=== PATIENT | male | born 1965 | race Caucasian/White ===

== ENCOUNTER 2016-11-29 20:50 | Emergency (ER) ==
[2016-11-29 21:09] LABS: MANUAL DIFF NEEDED? NO
[2016-11-29 21:17] LABS: BASO% 0.4 % (0.0-0.8); EOS# 0.11 X1000 (0.0-0.7); HEMATOCRIT 47.8 % (42.0-52.0); HEMOGLOBIN 17.3 g/dL (14.0-18.0); IMM GRAN# 0.04 X1000 (0.0-0.04); IMM GRAN% 0.4 % (0.0-0.5); LYMPH# 2.64 X1000 (1.2-3.4); LYMPH% 24.1 % (20.5-51.1); MCH 29.9 PG (27-31); MCHC 36.2 g/dL (33-37); MCV 82.6 FL (81-99); MONO# 0.64 X1000 (0.11-0.59); MONO% 5.8 % (1.7-9.3); MPV 9.8 FL (7.4-10.4); NEUT% 68.3 % (42.2-75.2); PLT 212 X1000 (130-400); RBC 5.79 XMIL (4.7-6.1)
[2016-11-29] MEDS ORDERED: ASPIRIN PO ONE (21:22)
[2016-11-29] MEDS ORDERED: ZOFRAN IV ONE (21:22)
[2016-11-29] MEDS ORDERED: LABETALOL IV ONE (21:22)
[2016-11-29] MEDS ORDERED: DILAUDID IV ONE (21:22)
--- NOTE | 2016-11-29 21:38 | PROVIDER DOCUMENTATION ---
HPI-Chest Pain - General Source: patient, EMS - History of Present Illness-CP Location: denies: substernal (midsternal) Chest Pain Radiation: reports: back Quality of Pain: reports: pressure, sharp, stabbing, throbbing, other (shooting) Severity in ED: moderate Onset/Duration: this morning (0630) Timing: still present, improving Context/Activities at Onset: reports: light activity Associated Symptoms: reports: back pain. denies: abdominal pain, diaphoresis, dizziness, edema, fatigue, fever/chills, headache, heartburn, nausea, rash, shortness of breath, swelling/lump in chest, syncope, vomiting, weakness Nitro Today/Relief: 0.4 mg x 3, provided by EMS Prior Chest Pain/Cardiac Workup: reports: no prior chest pain, no prior cardiac workup <Jose Angel - Last Filed: 11/29/16 23:51> <Dank Ward - Last Filed: 11/30/16 00:46> - General Stated Complaint: cp Time Seen by Provider: 11/29/16 21:07 Allergies/Adverse Reactions: Patient Allergies Allergy/AdvReac Type Severity Reaction Status Date / Time No Known Allergies Allergy Verified 06/27/15 13:34 Home Medications: Home Medication List Medication Instructions Recorded Confirmed Last Taken Type Lisinopril/Hydrochlorothiazide 1 each PO DAILY #30 tablet 06/27/15 Unknown Rx [Lisinopril-Hctz 20-12.5 mg Tab] Methocarbamol [Robaxin-750] 750 mg PO TID #30 tablet 06/27/15 Unknown Rx Naproxen 375 mg PO BID #20 tablet 06/27/15 Unknown Rx Tramadol [Ultram] 50 mg PO Q8HR #8 tablet 06/27/15 Unknown Rx Amlodipine Besylate [Norvasc] 10 mg PO HS #30 tablet 11/30/16 Unknown Rx Lisinopril 20 mg PO DAILY #30 tablet 11/30/16 Unknown Rx Tramadol [Ultram] 50 mg PO TID #30 tablet 11/30/16 Unknown Rx - History of Present Illness-CP Nature of Presenting Problem: Pt is a 51 yom who presents to ER via EMS with CC of chest pain/soreness with onset of approximately 0630 this am. Pt reports that he had several coughing fits yesterday. Today, pt reports that he moved some furniture in his house and noticed that his chest pain got a little worse, but didn't think much of it. Pt went to buddhism, intending on taking tylenol before leaving but forgot. Pt's chest pain progressively got worse until 193 when it became 10/10. Pt was given nitrox3 by EMS with relief to 6/10, but soon returned to 10/10 C/P. Pt described midsternal chest pain as sharp/stabbing/throbbing/shooting that radiated throught to his back. On exam, pt has bilateral lower rib tenderness and bilateral painful inspiration. (Jose Angel) Review of Systems - Adult - REVIEW OF SYSTEMS - ADULT Constitutional: denies: chills, fever, fatique, night sweats, weight gain, weight loss Eyes: reports: no symptoms reported Ears, Nose, Mouth & Throat: reports: no symptoms reported Cardiovascular: reports: chest pain. denies: edema, heart murmur, irregular heart rate, orthopnea, palpitations, poor circulation, PND, syncope Respiratory: reports: cough, dyspnea on exertion. denies: chronic cough, excessive sputum production, hemoptysis, pleurisy, shortness of breath, wheezing Gastrointestinal: reports: no symptoms reported Genitourinary: reports: no symptoms reported Musculoskeletal: reports: back pain, muscle aches. denies: bone pain, frequent leg cramps, joint pain, joint swelling, muscle weakness, neck pain Integumentary: reports: no symptoms reported Neurological: reports: no symptoms reported Psychiatric: reports: no symptoms reported Endocrine: reports: no symptoms reported Hematologic/Lymphatic: reports: no symptoms reported Allergic/Immunologic: reports: no symptoms reported All Other Systems: Reviewed and Negative <Jose Angel - Last Filed: 11/29/16 23:51> Past History - Adult - PAST MEDICAL HISTORY-ADULT Review of Records: reports: Nursing Assessment Review, Medications Reviewed - IMMUNIZATION STATUS Childhood Immunizations: See Nurse Assessment Flu Vaccine: See Nurse Assessment <Jose Angel - Last Filed: 11/29/16 23:51> Physical Exam-General - PHYSICAL EXAM-ADULT Initial Vital Signs Reviewed: Yes - CONSTITUTIONAL General Appearance: appears well, alert, mild distress. negative: no apparent distress, lethargic, slow to respond, obtunded, combative - NECK Neck: non-tender, full range of motion, supple - RESPIRATORY Respiratory: lungs clear, normal breath sounds, pain on inspiration (bilaterally ). negative: chest non-tender, respiratory distress, decreased breath sounds, accessory muscle use, wheezing - CARDIOVASCULAR Cardiovascular: normal peripheral pulses, regular rate, rhythm. negative: bradycardia, tachycardia, irregularly irregular - CHEST (BREASTS) Chest/Breast: no masses/lumps, tenderness (bilateral ribs, lower aspect). negative: no tenderness - GASTROINTESTINAL (ABDOMEN) Abdominal Exam: normal bowel sounds, non tender, soft. negative: abnormal bowel sounds, distended, tenderness, mass - MUSCULOSKELETAL Extremity: normal range of motion, non-tender, normal gait - NEUROLOGIC Neurologic: grossly normal, no motor/sensory deficits. negative: focal weakness , motor weakness, sensory deficit - PSYCHIATRIC Psych/Mental Status: normal mood/affect, normal thought content, normal thought process, oriented x 3 <Jose Angel - Last Filed: 11/29/16 23:51> Progress - EKG 1 Time of EKG reading by physician:: 20:48 EKG Read and Signed by:: Dank Ward EKG Interpretation (*Must complete 3 of following elements*): Abnormal ( Nonspecific T wave abnormality; Prolonged QT) Rate: 76 Rhythm: NSR 2 Time of EKG reading by physician:: 23:52 EKG Read and Signed by:: Dank Ward EKG Interpretation (*Must complete 3 of following elements*): Abnormal (Minimal voltage criteria for LVH, may be normal variant; Nonspecific T wave abnormality ; Prolonged QT) Rate: 60 Rhythm: Sinus rhythm with PAC - XRAY 1 XRAY: Bilateral XRAY Study: Chest Impression: See EMR Report XRAY Interpretation: No acute pathology <Jose Angel - Last Filed: 11/29/16 23:51> - REASSESSMENT Reassessment #1 Time Reassessed: 00:43 (plan and follow w/dr espinoza) Status: improving <Dank Ward - Last Filed: 11/30/16 00:46> Departure <Jose Angel - Last Filed: 11/29/16 23:51> - Departure Time of Disposition Order: 00:45 Certified Medical Emergency: Emergent <Dank Ward - Last Filed: 11/30/16 00:46> - Departure DIAGNOSIS: Chest wall pain, Hypertensive urgency Disposition: HOME 01 Condition: Stable Prescriptions: Lisinopril 20 mg PO DAILY #30 tablet Amlodipine Besylate [Norvasc] 10 mg PO HS #30 tablet Tramadol [Ultram] 50 mg PO TID #30 tablet Referrals: None,PCP [Primary Care Provider] - Jerry Espinoza MD [STAFF PHYSICIAN] - Attestation - Scribe Verification/Attestation Scribe:: Jose Angel Acting as Scribe for:: Dank Ward Scribe documention review:: This chart was documented by a scribe and accurately reflects the service the provider performed and the decisions made by the provider. <Jose Angel - Last Filed: 11/29/16 23:51> Physician Attestation
[2016-11-29 21:40] LABS: AGAP 14; ALBUMIN 4.5 g/dL (3.5-5.0); ALKALINE PHOSPHATASE 84 U/L (32-122); BUN 15 mg/dL (8-22); CHLORIDE 103 mmol/L (98-107); CK PROFILE 94 U/L (24-204); COSMO 281; GOT 30 U/L (10-34); GPT 44 U/L (10-44); POTASSIUM 3.9 mmol/L (3.5-5.1); SODIUM 140 mmol/L (136-145); TCO2 23 mmol/L (25-35); TOTAL BILIRUBIN 0.81 mg/dL (0.20-1.00); TOTAL PROTEIN 7.3 g/dL (6.3-8.3)
[2016-11-29 21:47] LABS: INR 1.07; PROTIME 10.9 Seconds (9.2-11.7); PTT 25.9 Seconds (22.0-36.0)
[2016-11-29] MEDS ORDERED: NORVASC PO ONE (23:05)
[2016-11-29] MEDS ORDERED: PRINIVIL PO ONE (23:05)
[2016-11-30 00:48] VITALS: BP 150/87
--- NOTE | 2016-11-30 09:10 | EKG Report ---
Test Performed on : 11/29/2016 11:27:31 PM Test Reason : chest pain Blood Pressure : / mmHG Vent. Rate : 060 BPM Atrial Rate : 060 BPM P-R Int : 166 ms QRS Dur : 094 ms QT Int : 478 ms P-R-T Axes : 039 014 002 degrees QTc Int : 478 ms Sinus rhythm. with premature atrial complexes. Minimal voltage criteria for LVH, may be normal variant Nonspecific T wave abnormality Prolonged QT Abnormal ECG When compared with ECG of 29-NOV-2016 20:48, (Unconfirmed) premature atrial complexes. are now present Unconfirmed Result
--- NOTE | 2016-11-30 09:11 | EKG Report ---
Test Performed on : 11/29/2016 8:48:11 PM Test Reason : CP Blood Pressure : / mmHG Vent. Rate : 076 BPM Atrial Rate : 076 BPM P-R Int : 158 ms QRS Dur : 090 ms QT Int : 414 ms P-R-T Axes : 045 015 -16 degrees QTc Int : 465 ms Normal sinus rhythm. Nonspecific T wave abnormality Prolonged QT Abnormal ECG When compared with ECG of 29-APR-2010 14:28, Inverted T waves have replaced nonspecific T wave abnormality in Inferior leads QT has lengthened Unconfirmed Result
--- NOTE | 2016-11-30 10:12 | Diag Imaging Result Document ---
PROCEDURE NAME: CHEST-2 VIEWS - 11/29/2016 CHEST X-RAY 2 VIEWS, 11/29/2016: COMPARISON: None. FINDINGS: Lungs are hyperexpanded compatible with COPD. No focal infiltrates, pneumothorax, or pleural effusion. Heart size is normal. IMPRESSION: COPD.
== END 2016-11-30 00:59 | disposition home or self-care (01) ==
LOC: ED 20:50
DX: I16.0 Hypertensive urgency (principal); R07.89 Other chest pain; R05 Cough; R06.09 Other forms of dyspnea; M54.9 Dorsalgia, unspecified; M79.1 Myalgia; R94.31 Abnormal electrocardiogram [ECG] [EKG]; Z79.899 Other long term (current) drug therapy
CPT/HCPCS: 71020; 80053; 82550; 83735; 83880; 84484; 85025; 85379; 85610; 85730; 93005; 96374; 96375; J1170; J2405